=== PATIENT | male | born 1975 | race Caucasian/White ===

== ENCOUNTER → 2022-06-24 | Emergency (ER) | payer SELFPAY ==
[~2022-06-24] VITALS: Ht 165.1 cm; Wt 69.9 kg
[~2022-06-24] MED LIST: FLUORESCEIN SODIUM OPHTH 1 EA STRIP ONE; OFLO5DRO LEFTEYE
[2022-06-24 22:02] VITALS: BP 139/88
--- NOTE | 2022-06-24 22:03 | NUR ---
BIBS C/O LT EYE INJURY. AMBULATORY, SEATED ON CHAIR AND SEEN AND EXAMINED BY DR ELLISON
--- NOTE | 2022-06-24 22:09 | NUR ---
VERBAL ORDER FOR tetracaine and fluorescein
--- NOTE | 2022-06-24 22:15 | NUR ---
PATIENT MOVED TO BED 9
== END | disposition home or self-care (01) ==
LOC: ER 20:49
DX: T15.02XA Foreign body in cornea, left eye, initial encounter (principal); X58.XXXA Exposure to other specified factors, initial encounter; Y93.89 Activity, other specified; Y92.89 Other specified places as the place of occurrence of the external cause; Y99.8 Other external cause status